=== PATIENT | male | born 1975 | race Native Hawaiian/Other Pacific Islander ===

== ENCOUNTER 2019-02-18 10:53 | Emergency (ER) | payer SELFPAY ==
--- NOTE | 2019-02-18 12:44 | Emergency Department Report ---
HPI - General Chief Complaint: Chest Pain Time Seen by Provider: 02/18/19 12:41 - HPI HPI: 43 YO MALE COMES TO ER WITH 2 DAY HX CP RAD TO L ARM; AND PERIODS OF PALPITATIONS. HE CAN NOT TELL ME WHAT MAKES THESE EPISODES BETTER OR WORSE. THEY COME AND GO. HE WAS ON LOSARTAN (FROM [place]) UNTIL SAT AND HE RAN OUT. MILDLY OVERWEIGHT. USED TO EXERCISE ONCE PER WEEK UNTIL 3 MONTHS AGO THEN GOT BUSY. THE CP IS TIGHTNESS WITH NO SOB. NO NAUSEA. NO SWEATING. DOES HAVE PALPITATIONS WITH IT. ON CURRENT EXAM PT IS NOT HAVING CP DENIES ENERGY DRINKS HAS NEVER BEEN TOLD HE HAD LOW OR HIGH HEART RATE BEFORE BP INC ON ADMIT, OFF MEDS NOW 4 DAYS. HE HAS BP MONITOR WITH HIM SHOWING MILD ELEVATION IN BP AND GARRETT TO 50'S PSH ORTHO DUE TO TRAUMA RX LOSARTAN NO CIG OCC ETOH NO DRUGS PMH HTN MOM -HTN DAD A/W ED Past Medical Hx - Past Medical History Hx Hypertension: Yes - Surgical History Past Surgical History?: No - Social History Smoking Status: Never Smoker Substance Use Type: None - Medications Home Medications: Home Medications Medication Instructions Recorded Confirmed Last Taken Type Losartan [Cozaar] 50 mg PO QDAY #30 tablet 02/18/19 Unknown Rx ED Review of Systems ROS: Stated complaint: CHEST BEAT FAST/CHECK UP Other details as noted in HPI Comment: All other systems reviewed and negative Physical Exam - Physical Exam Vital Signs: Vital Signs 02/18/19 10:59 Temperature 98.1 F Pulse Rate 74 Respiratory 16 Rate Blood Pressure 168/117 [Left] O2 Sat by Pulse 99 Oximetry Physical Exam: ALERT AND ORIENTED S1SE LUNGS CTA ABD SNT NO JVD NO EDEMA ED Course Vital Signs 02/18/19 10:59 Temperature 98.1 F Pulse Rate 74 Respiratory 16 Rate Blood Pressure 168/117 [Left] O2 Sat by Pulse 99 Oximetry - Reevaluation(s) Reevaluation #1: 02/18/19 16:00 REPEAT BP 174/98 Reevaluation #2: 02/18/19 16:33 NO PAIN ON REEXAM PT EDUCATED ON FOLLOW UP PLAN OF CARE ED Medical Decision Making - Lab Data Result diagrams: 02/18/19 13:05 02/18/19 13:05 - EKG Data EKG shows normal: sinus rhythm Rate: bradycardia - EKG Data When compared to previous EKG there are: no significant change Interpretation: no acute changes - Radiology Data Radiology results: report reviewed, image reviewed NAP - Medical Decision Making Lab Results 02/18/19 02/18/19 02/18/19 Range/Units 13:05 13:05 14:59 WBC 6.5 (4.5-11.0) K/mm3 RBC 4.60 (3.65-5.03) M/mm3 Hgb 14.2 (11.8-15.2) gm/dl Hct 41.7 (35.5-45.6) % MCV 91 (84-94) fl MCH 31 (28-32) pg MCHC 34 (32-34) % RDW 14.4 (13.2-15.2) % Plt Count 219 (140-440) K/mm3 Lymph % (Auto) 35.4 H (13.4-35.0) % Desha % (Auto) 7.0 (0.0-7.3) % Eos % (Auto) 2.3 (0.0-4.3) % Baso % (Auto) 0.4 (0.0-1.8) % Lymph # 2.3 (1.2-5.4) K/mm3 Desha # 0.5 (0.0-0.8) K/mm3 Eos # 0.1 (0.0-0.4) K/mm3 Baso # 0.0 (0.0-0.1) K/mm3 Seg Neutrophils % 54.9 (40.0-70.0) % Seg Neutrophils # 3.5 (1.8-7.7) K/mm3 D-Dimer 180.64 (0-234) ng/mlDDU Sodium 139 (137-145) mmol/L Potassium 4.7 (3.6-5.0) mmol/L Chloride 102.0 (98-107) mmol/L Carbon Dioxide 26 (22-30) mmol/L Anion Gap 16 mmol/L BUN 18 (9-20) mg/dL Creatinine 0.8 (0.8-1.5) mg/dL Estimated GFR > 60 ml/min BUN/Creatinine Ratio 23 % Glucose 91 (75-100) mg/dL Calcium 9.5 (8.4-10.2) mg/dL Total Bilirubin 0.50 (0.1-1.2) mg/dL AST 21 (5-40) units/L ALT 28 (7-56) units/L Alkaline Phosphatase 46 (35-129) units/L Troponin T < 0.010 (0.00-0.029) ng/mL Total Protein 7.7 (6.3-8.2) g/dL Albumin 4.6 (3.9-5) g/dL Albumin/Globulin Ratio 1.5 % 02/18/19 Range/Units 14:59 WBC (4.5-11.0) K/mm3 RBC (3.65-5.03) M/mm3 Hgb (11.8-15.2) gm/dl Hct (35.5-45.6) % MCV (84-94) fl MCH (28-32) pg MCHC (32-34) % RDW (13.2-15.2) % Plt Count (140-440) K/mm3 Lymph % (Auto) (13.4-35.0) % Desha % (Auto) (0.0-7.3) % Eos % (Auto) (0.0-4.3) % Baso % (Auto) (0.0-1.8) % Lymph # (1.2-5.4) K/mm3 Desha # (0.0-0.8) K/mm3 Eos # (0.0-0.4) K/mm3 Baso # (0.0-0.1) K/mm3 Seg Neutrophils % (40.0-70.0) % Seg Neutrophils # (1.8-7.7) K/mm3 D-Dimer (0-234) ng/mlDDU Sodium (137-145) mmol/L Potassium (3.6-5.0) mmol/L Chloride (98-107) mmol/L Carbon Dioxide (22-30) mmol/L Anion Gap mmol/L BUN (9-20) mg/dL Creatinine (0.8-1.5) mg/dL Estimated GFR ml/min BUN/Creatinine Ratio % Glucose (75-100) mg/dL Calcium (8.4-10.2) mg/dL Total Bilirubin (0.1-1.2) mg/dL AST (5-40) units/L ALT (7-56) units/L Alkaline Phosphatase (35-129) units/L Troponin T < 0.010 (0.00-0.029) ng/mL Total Protein (6.3-8.2) g/dL Albumin (3.9-5) g/dL Albumin/Globulin Ratio % Vital Signs 02/18/19 10:59 Temperature 98.1 F Pulse Rate 74 Respiratory 16 Rate Blood Pressure 168/117 [Left] O2 Sat by Pulse 99 Oximetry PT IS ON NO RATE LOWERING MEDS NO HYPOXIA TROP NEG X 1; DIMER NEG LABS NOTED XRAY NOTED DISCUSSED CASE WITH CARDS- [facility] THEY TOLD DR ARELLANO HE IS OK FOR FOLLOW UP OUTPT BP RECHECKED AND NOTED DC HOME WITH CARDS FOLLOW UP AND LOSARTAN RX. - Differential Diagnosis RO ACS Critical care attestation.: If time is entered above; I have spent that time in minutes in the direct care of this critically ill patient, excluding procedure time. ED Disposition Clinical Impression: HTN (hypertension), Bradycardia Disposition: DC-01 TO HOME OR SELFCARE Is pt being admited?: No Does the pt Need Aspirin: No Condition: Stable Instructions: Hypertension (ED), Bradycardia (ED) Additional Instructions: FOLLOW UP WITH DR DUDLEY NUMBER IS BELOW THEY HAVE BEEN CALLED TODAY AND ARE EXPECTING YOU TO CALL FOR FOLLOW UP FOLLOW UP WITH PCP REFERRAL PROVIDED BELOW TAKE BP MED PER ROUTINE Referrals: MARIE LYNN MD [Staff Physician] - 7 Days PRIMARY CARE, [Primary Care Provider] - 3-5 Days Time of Disposition: 15:51
--- NOTE | 2019-02-18 13:23 | XRay Report ---
CHEST 2 VIEWS INDICATION / CLINICAL INFORMATION: CP AND PALPITATION. COMPARISON: None available. FINDINGS: SUPPORT DEVICES: None. HEART / MEDIASTINUM: No significant abnormality. LUNGS / PLEURA: No significant pulmonary or pleural abnormality. No pneumothorax. ADDITIONAL FINDINGS: No significant additional findings. IMPRESSION: 1. No acute findings. Signer Name: Mat Hall MD Signed: 02/18/2019 1:19 PM Workstation Name: [id number]
[2019-02-18 13:41] LABS: Basophils % (Auto) 0.4 % (0.0-1.8); Eosinophils # (Auto) 0.1 K/mm3 (0.0-0.4); Eosinophils % (Auto) 2.3 % (0.0-4.3); Hematocrit 41.7 % (35.5-45.6); Hemoglobin 14.2 gm/dl (11.8-15.2); Lymphocytes # (Auto) 2.3 K/mm3 (1.2-5.4); Lymphocytes % (Auto) 35.4 % (13.4-35.0); Mean Corpuscular HGB Conc 34 % (32-34); Mean Corpuscular Volume 91 fl (84-94); Monocytes # (Auto) 0.5 K/mm3 (0.0-0.8); Platelet Count 219 K/mm3 (140-440); Red Cell Distribution Width 14.4 % (13.2-15.2)
[2019-02-18 13:51] LABS: Alanine Aminotransferase 28 units/L (7-56); Albumin 4.6 g/dL (3.9-5); BUN/Creatinine Ratio 23; Blood Urea Nitrogen 18 mg/dL (9-20); Calcium 9.5 mg/dL (8.4-10.2); Hemolysis Index 9
[2019-02-18] MEDS ORDERED: COZAAR PO ONE (15:55)
[2019-02-18 17:42] VITALS: BP 173/99
== END 2019-02-18 17:40 | disposition home or self-care (01) ==
LOC: ED 10:53
DX: I10 Essential (primary) hypertension (principal); R00.1 Bradycardia, unspecified; Z79.899 Other long term (current) drug therapy
CPT/HCPCS: 36415; 71046; 80053; 84484; 85025; 85379; 93005; 93010